=== PATIENT | male | born 1950 | race Caucasian/White ===

== ENCOUNTER → 2018-11-17 | Outpatient (CLI) | payer MEDICARE ==
--- NOTE | 2018-11-18 08:43 | RAD ---
Scrotal ultrasound, 11/17/2018: HISTORY: Scrotal lump The right testicle measures 4.0 x 2.2 x 1.4 cm while the left testicle measures 2.8 x 2.4 x 1.7 cm. There is symmetric blood flow within the testicles. No testicular mass is evident. There is a tiny 3 mm cyst in the right epididymis. The left epididymis is unremarkable. No significant hydrocele is evident. There is a cluster of vessels in the superior aspect of the scrotum on the right compatible with a varicocele. It measures approximately 1 cm in greatest diameter. There is a tubular structure within this process which does not demonstrate internal flow and may represent a thrombosed vein or underlying cyst. IMPRESSION: 1. Small right varicocele. 2. No testicular abnormality is detected. Electronically signed by: Anton Roy MD (11/18/2018 8:41 AM) [facility]
== END | disposition home or self-care (01) ==
LOC: US 10:56
PROVIDERS: ATTEND Family Medicine
DX: I86.1 Scrotal varices (principal); N50.3 Cyst of epididymis
CPT/HCPCS: 76870

== ENCOUNTER → 2019-08-18 | Outpatient (CLI) | payer MEDICARE ==
--- NOTE | 2019-08-18 15:51 | RAD ---
Examination: KUB History: Abdominal pain Comparison/Correlation: None Findings: Frontal views of the abdomen were obtained. Surgical clips and suture material are present overlying the right iliac region. Moderate quantity of stool in the colon noted. No bowel obstruction. Degenerative changes of the lower lumbar spine are present. No suspicious abdominal calcifications identified. The upper abdomen was not fully included on this exam. Impression: No suspicious process. Electronically signed by: Willard Chambers MD (08/18/2019 3:48 PM) [facility]
== END | disposition home or self-care (01) ==
LOC: RAD 15:08
PROVIDERS: ATTEND Family Medicine
DX: R10.32 Left lower quadrant pain (principal)
CPT/HCPCS: 74018